=== PATIENT | female | born 1975 | race Caucasian/White ===

== ENCOUNTER 2018-04-09 22:53 | Emergency (ER) | payer OTHER ==
[~2018-04-09] VITALS: Ht 172.7 cm; Wt 68.0 kg
[~2018-04-09 22:53] MED LIST: MIRALAX255 GM PO; NORCO 5-325 TA1 EACH PO; PHENERGAN 25 MG25 M1 PO; PREVACID30 M1 PO
[2018-04-09 22:58] VITALS: BP 158/92
== END 2018-04-10 00:10 | disposition home or self-care (01) ==
LOC: ER 22:53
DX: S01.511A Laceration without foreign body of lip, initial encounter (principal); W00.0XXA Fall on same level due to ice and snow, initial encounter; Y93.89 Activity, other specified; Y92.89 Other specified places as the place of occurrence of the external cause; Y99.8 Other external cause status